=== PATIENT | male | born 1930 | race Caucasian/White ===

== ENCOUNTER 2017-01-15 14:21 | Emergency (ER) | payer MEDICAID ==
[~2017-01-15] VITALS: Ht 172.7 cm; Wt 85.0 kg
[~2017-01-15 14:21] MED LIST: ALBU18HF INHALATION; BECL8.7A INH; LEVO500T72 PO; LISI-313 PO; METF500T4 PO; SIMV10TA PO
[2017-01-15 14:41] VITALS: Ht 172.7 cm; Wt 85.0 kg
[2017-01-15] MEDS ORDERED: ONDANSETRON 4 MG INJ IV STA (17:40)
[2017-01-15] MEDS ORDERED: morphine 4 MG/ML VIAL IV STA (17:40)
[2017-01-15] MEDS ORDERED: SOD CHLORIDE 0.9% 500 ML IV STA (17:40)
[2017-01-15 17:58] LABS: BASOPHILS % 0.2 % (0.0-2.0); EOSINOPHILS # 0.7 10^3/ul (0.0-0.5); EOSINOPHILS % 7.6 % (0.0-7.0); HEMATOCRIT 32.6 % (42.0-52.0); HEMOGLOBIN 10.4 g/dl (14.0-18.0); LYMPHOCYTES # 1.3 10^3/ul (0.8-2.9); LYMPHOCYTES % 13.9 % (15.0-51.0); MEAN CORPUSCULAR HEMOGLOBIN 29.1 pg (29.0-33.0); MEAN CORPUSCULAR HGB CONC 31.9 g/dl (32.0-37.0); MEAN CORPUSCULAR VOLUME 91.1 fl (82.0-101.0); MEAN PLATELET VOLUME 8.6 fl (7.4-10.4); MONOCYTE # 0.7 10^3/ul (0.3-0.9); MONOCYTES % 7.8 % (0.0-11.0); NEUTROPHIL # 6.5 10^3/ul (1.6-7.5); NEUTROPHILS % 70.1 % (39.0-77.0); PLATELET COUNT 478 10^3/UL (140-415); RED BLOOD COUNT 3.58 10^6/ul (4.70-6.10); RED CELL DISTRIBUTION WIDTH 14.6 % (11.5-14.5); WHITE BLOOD COUNT 9.2 10^3/ul (4.8-10.8)
[2017-01-15] MEDS ORDERED: ASPI325T4 PO (18:10)
[2017-01-15] MEDS ORDERED: FER325 PO (18:11)
[2017-01-15] MEDS ORDERED: OMEP20CA16 PO (18:11)
[2017-01-15] MEDS ORDERED: DOCU100T PO (18:11)
[2017-01-15] MEDS ORDERED: ACET325T33 PO (18:12)
[2017-01-15] MEDS ORDERED: PSYL283P27 PO (18:14)
[2017-01-15 18:18] LABS: ALBUMIN 3.9 g/dl (3.3-4.9); ALBUMIN/GLOBULIN RATIO 0.79; BILIRUBIN,INDIRECT 0.2 mg/dl (0-1.1); BILIRUBIN,TOTAL 0.2 mg/dl (0.2-1.3); CALCIUM 8.9 mg/dl (8.4-10.2); CREATININE 0.92 mg/dl (0.61-1.24); TOTAL PROTEIN 8.8 g/dl (6.1-8.1)
[2017-01-15] MEDS ORDERED: IODIXANOL LOCM 100 ML BTL ONE (18:27)
[2017-01-15] MEDS ORDERED: SOD CHLORIDE 0.9% 100 ML ONE (18:27)
--- NOTE | 2017-01-15 19:18 | RADRPT ---
PROCEDURE: CT Abdomen and Pelvis with contrast. CLINICAL INDICATION: Abdominal pain. TECHNIQUE: CT scan of the abdomen and pelvis with and without contrast was performed on a multidet sunil high-resolution CT scanner. The patient was scanned following the uncomplicated intravenous a dministration of 100 cc of Omnipaque 300. Coronal and sagittal reformatted images were obtained fro m the axial source images. Images were reviewed on a high-resolution PACS workstation. The followin g dose reduction techniques were used: Automated exposure control, adjustment of the mA and/or kV ac cording to patient size and use of iterative reconstruction technique. The total exam CTDI equals 14 .7 mGy and the total exam DLP equals 790 mGy-cm. COMPARISON: None. FINDINGS: CT abdomen: Multiple bilateral thin-walled cysts in bilateral lung bases. The heart size is normal. No pericardial effusion identified. Small amount of fluid is seen in the distal esophagus, indicating reflux. The liver demonstrates normal size and density. No liver mass identified. The gallbladder is unremarkable. There is no intrahepatic or extrahepatic biliary dilatation. The spleen is normal in size. No focal splenic abnormality identified. No gross abnormality of the stomach is identified. The pancreas is unremarkable. The adrenal glands appear normal. There is a 2 mm calcific focus in the upper pole of left kidney which may represent vascular calcifi cation or nonobstructing renal calculus. There are multiple bilateral benign-appearing renal cysts, measuring up to 2.3 cm in the left kidney and 1.1 cm the right kidney. There is no evidence of renal mass, renal calculi or hydronephrosis. The aorta is of normal caliber. Aortic vascular calcifications are present. No adenopathy identified. The colon is moderately distended with stool. The bowel and mesentery are unremarkable. There is a 2.2 cm fat containing umbilical hernia. The appendix is visualized and appears normal. CT pelvis: The pelvic organs are normal. The pelvic sidewalls and inguinal regions are clear. The sigmoid colon and rectum are redundant and distended with stool. . No adenopathy, free fluid or inflammatory change identified. The osseous structures are remarkable for advanced degenerative spondylosis of the spine. No osteolytic or osteoblastic lesion is detected. IMPRESSION: 1. No mass, lymphadenopathy, or focal acute inflammatory process is identified. 2. Moderate atherosclerotic peripheral vascular disease. 3. Multiple benign-appearing bilateral renal cysts. 4. Numerous lung cysts in the bilateral lung bases. The differential diagnosis includes pulmonary L angerhans cell histiocytosis, lymphocytic interstitial pneumonitis, lymphangioleiomyomatosis as well as multiple rare diseases such as light change deposition disease and Sveb-Ozrw-Yycre syndrome. 5. Gastroesophageal reflux. 6. Redundant, stool-filled colon. In the appropriate clinical context this could indicate constipat ion. 7. 2.2 cm fat containing umbilical hernia. RPTAT: QQ .Ed Serna MD, Date Time Electronically viewed and signed by .Ed Serna MD, on 01/15/2017 19:18 .M/
--- NOTE | 2017-01-15 19:55 | ERD ---
ER Documentation Chief Complaint Date/Time DATE: 01/15/17 TIME: 19:51 Chief Complaint Complains of abdominal pain Hx of constipation x 2 months HPI This is a 86-year-old male who is complaining of constipation for 2 months. He says is getting worse over the past 2 weeks and he is complaining of diffuse abdominal pain today that is mild. He said he had one episode of some vomiting that is non-bilious and nonbloody. He says his pain is diffuse but worse when he tries to have a bowel movement. He says able to pass a few small balls of stool but there is no blood in it. No chest pain shortness of breath no back pain no fever ROS All systems reviewed and are negative except as per history of present illness. Medications Home Meds Active Scripts Albuterol Sulfate* (Ventolin HFA*) 18 Gm Hfa.aer.ad, 2 PUFF INHALATION Q4H, #1 INHALER Prov:LAILA AUGUSTIN 11/30/15 Metformin* (Glucophage*) 500 Mg Tab, 500 MG PO BID WITH MEALS, #60 TAB Prov:LAILA AUGUSTIN 11/30/15 Simvastatin* (Zocor*) 10 Mg Tablet, 10 MG PO QHS, #30 TAB Prov:LAILA AUGUSTIN 11/30/15 Reported Medications Psyllium Husk/Aspartame (Metamucil Sugar-Free Powder) 283 Gm Powder, 1 TSP PO DAILY 01/15/17 Acetaminophen* (Tylenol*) 325 Mg Tablet, 650 MG PO Q4H Y for PAIN, TAB 01/15/17 Docusate Sodium* (Dok*) 100 Mg Tablet, 100 MG PO DAILY, #30 CAP 01/15/17 Ferrous Sulfate* (Ferrous Sulfate*) 325 Mg Tabec, 325 MG PO DAILY, TAB 01/15/17 Omeprazole* (Omeprazole*) 20 Mg Capsule.dr, 20 MG PO DAILY, #30 CAP 01/15/17 Aspirin* (Aspirin*) 325 Mg Tablet, 325 MG PO BID, TAB 01/15/17 Discontinued Reported Medications Beclomethasone Dip* (Qvar 40*) 7.3 Gm Inha, 2 PUFF INH BID, #1 INHALER 08/27/15 Discontinued Scripts Lisinopril* (Lisinopril*) 5 Mg Tablet, 5 MG PO DAILY, #30 TAB Prov:REGIDOR,LAILA 11/30/15 Levofloxacin* (Levaquin*) 500 Mg Tablet, 500 MG PO DAILY for 10 Days, TAB Prov:LAILA AUGUSTIN 11/30/15 Allergies Allergies: Coded Allergies: No Known Allergy (Unverified , 01/15/17) PMhx/Soc History of Surgery: No Anesthesia Reaction: No Hx Neurological Disorder: No Hx Respiratory Disorders: Yes (Asthma) Hx Psychiatric Problems: No Hx Miscellaneous Medical Probl: Yes (sepsis,PNA, asthma,dyslipidemia,DM, htn) Hx Alcohol Use: No Hx Substance Use: No Hx Tobacco Use: No Smoking Status: Never smoker FmHx Family History: No coronary disease Physical Exam Vitals Vital Signs Date Time Temp Pulse Resp B/P Pulse Ox O2 Delivery O2 Flow Rate FiO2 01/15/17 17:52 69 20 146/70 99 Room Air 01/15/17 14:41 98.5 91 20 157/70 93 Physical Exam Const: [] Head: Atraumatic Eyes: Normal Conjunctiva ENT: Normal External Ears, Nose and Mouth. Neck: Full range of motion..~ No meningismus. Resp: Clear to auscultation bilaterally Cardio: Regular rate and rhythm, no murmurs Abd: Soft, non tender, non distended. Normal bowel sounds Skin: No petechiae or rashes Back: No midline or flank tenderness Ext: No cyanosis, or edema Neur: Awake and alert Psych: Normal Mood and Affect Result Diagram: 01/15/17 1740 01/15/17 1740 Results 24 hrs Laboratory Tests Test 01/15/17 17:40 White Blood Count 9.210^3/ul Red Blood Count 3.5810^6/ul Hemoglobin 10.4g/dl Hematocrit 32.6% Mean Corpuscular Volume 91.1fl Mean Corpuscular Hemoglobin 29.1pg Mean Corpuscular Hemoglobin Concent 31.9g/dl Red Cell Distribution Width 14.6% Platelet Count 82930^3/UL Mean Platelet Volume 8.6fl Neutrophils % 70.1% Lymphocytes % 13.9% Monocytes % 7.8% Eosinophils % 7.6% Basophils % 0.2% Nucleated Red Blood Cells % 0.0/100WBC Neutrophils # 6.510^3/ul Lymphocytes # 1.310^3/ul Monocytes # 0.710^3/ul Eosinophils # 0.710^3/ul Basophils # 0.010^3/ul Nucleated Red Blood Cells # 0.010^3/ul Sodium Level 137mmol/L Potassium Level 4.0mmol/L Chloride Level 99mmol/L Carbon Dioxide Level 28mmol/L Anion Gap 14 Blood Urea Nitrogen 10mg/dl Creatinine 0.92mg/dl Glucose Level 124mg/dl Calcium Level 8.9mg/dl Total Bilirubin 0.2mg/dl Direct Bilirubin 0.00mg/dl Indirect Bilirubin 0.2mg/dl Aspartate Amino Transf (AST/SGOT) 28IU/L Alanine Aminotransferase (ALT/SGPT) 37IU/L Alkaline Phosphatase 94IU/L Total Protein 8.8g/dl Albumin 3.9g/dl Globulin 4.90g/dl Albumin/Globulin Ratio 0.79 Lipase 23U/L Current Medications Medications (Trade) Dose Ordered Sig/Efren Route PRN Reason Start Time Stop Time Status Last Admin Dose Admin Sodium Chloride (NS) 500 ml @ 500 mls/hr Q1H STAT IV 01/15/17 17:40 01/15/17 18:39 DC 01/15/17 18:06 Morphine Sulfate (morphine) 4 mg ONCE STAT IV 01/15/17 17:40 01/15/17 17:41 DC 01/15/17 18:06 Ondansetron HCl (Zofran Inj) 4 mg ONCE STAT IV 01/15/17 17:40 01/15/17 17:41 DC 01/15/17 18:05 IV Flush 10 ml 10 ml STK-MED ONCE .ROUTE 01/15/17 18:27 01/15/17 18:28 DC 01/15/17 18:40 Sodium Chloride (NS) 100 ml @ ud STK-MED ONCE .ROUTE 01/15/17 18:27 01/15/17 18:28 DC 01/15/17 18:40 Iodixanol (Visipaque Locm) 100 ml STK-MED ONCE .ROUTE 01/15/17 18:27 01/15/17 18:28 DC 01/15/17 18:41 Procedures/MDM PROCEDURE: CT Abdomen and Pelvis with contrast. CLINICAL INDICATION: Abdominal pain. TECHNIQUE: CT scan of the abdomen and pelvis with and without contrast was performed on a multidetector high-resolution CT scanner. The patient was scanned following the uncomplicated intravenous administration of 100 cc of Omnipaque 300. Coronal and sagittal reformatted images were obtained from the axial source images. Images were reviewed on a high-resolution PACS workstation. The following dose reduction techniques were used: Automated exposure control, adjustment of the mA and/or kV according to patient size and use of iterative reconstruction technique. The total exam CTDI equals 14.7 mGy and the total exam DLP equals 790 mGy-cm. COMPARISON: None. FINDINGS: CT abdomen: Multiple bilateral thin-walled cysts in bilateral lung bases. The heart size is normal. No pericardial effusion identified. Small amount of fluid is seen in the distal esophagus, indicating reflux. The liver demonstrates normal size and density. No liver mass identified. The gallbladder is unremarkable. There is no intrahepatic or extrahepatic biliary dilatation. The spleen is normal in size. No focal splenic abnormality identified. No gross abnormality of the stomach is identified. The pancreas is unremarkable. The adrenal glands appear normal. There is a 2 mm calcific focus in the upper pole of left kidney which may represent vascular calcification or nonobstructing renal calculus. There are multiple bilateral benign-appearing renal cysts, measuring up to 2.3 cm in the left kidney and 1.1 cm the right kidney. There is no evidence of renal mass, renal calculi or hydronephrosis. The aorta is of normal caliber. Aortic vascular calcifications are present. No adenopathy identified. The colon is moderately distended with stool. The bowel and mesentery are unremarkable. There is a 2.2 cm fat containing umbilical hernia. The appendix is visualized and appears normal. CT pelvis: The pelvic organs are normal. The pelvic sidewalls and inguinal regions are clear. The sigmoid colon and rectum are redundant and distended with stool. . No adenopathy, free fluid or inflammatory change identified. The osseous structures are remarkable for advanced degenerative spondylosis of the spine. No osteolytic or osteoblastic lesion is detected. IMPRESSION: 1. No mass, lymphadenopathy, or focal acute inflammatory process is identified. 2. Moderate atherosclerotic peripheral vascular disease. 3. Multiple benign-appearing bilateral renal cysts. 4. Numerous lung cysts in the bilateral lung bases. The differential diagnosis includes pulmonary Langerhans cell histiocytosis, lymphocytic interstitial pneumonitis, lymphangioleiomyomatosis as well as multiple rare diseases such as light change deposition disease and Hbfh-Pwro-Igyia syndrome. 5. Gastroesophageal reflux. 6. Redundant, stool-filled colon. In the appropriate clinical context this could indicate constipation. 7. 2.2 cm fat containing umbilical hernia. RPTAT: QQ .Ed Serna MD, Date Time Electronically viewed and signed by .Ed Serna MD, on 01/15/2017 19: 18 .M/ CC: SENA VELAZQUEZ DO Patient was given a Fleet enema here. We will discharge home with a prescription for HalfLytely to evacuate the rest of his stool in his colon. Departure Diagnosis: Primary Impression: Constipation Constipation type: unspecified constipation type Qualified Code: K59.00 - Constipation, unspecified constipation type Additional Impression: Abdominal pain Abdominal location: unspecified location Qualified Code: R10.9 - Abdominal pain, unspecified abdominal location Condition: Stable Patient Instructions: Abdominal Pain, Treating Constipation, Constipation ( Adult) SENA VELAZQUEZ DO Jan 15, 2017 19:55
[2017-01-15] MEDS ORDERED: NA PHOSPHATE/BIPHOS 133 ML ENEMA PR ONE (20:00)
[2017-01-15 20:07] LABS: ADD UMIC NO; UR ASCORBIC ACID NEGATIVE (NEGATIVE); UR BILIRUBIN (Dip) NEGATIVE (NEGATIVE); UR BLOOD (Dip) NEGATIVE (NEGATIVE); UR CLARITY CLEAR (CLEAR); UR COLOR STRAW (YELLOW); UR GLUCOSE (Dip) NEGATIVE (NEGATIVE); UR KETONES (Dip) NEGATIVE (NEGATIVE); UR LEUKOCYTE ESTERASE (Dip) NEGATIVE Leu/ul (NEGATIVE); UR NITRITE (Dip) NEGATIVE (NEGATIVE); UR SPECIFIC GRAVITY (Dip) 1.026 (1.003-1.030); UR TOTAL PROTEIN (Dip) NEGATIVE (NEGATIVE); UR UROBILINOGEN (Dip) NEGATIVE (NEGATIVE)
[2017-01-15 21:30] VITALS: BP 146/60; PULSE 97; RESP 19
== END 2017-01-15 21:47 | disposition home or self-care (01) ==
LOC: E/R 14:21
DX: K59.00 Constipation, unspecified (principal); E11.9 Type 2 diabetes mellitus without complications; I10 Essential (primary) hypertension; J45.909 Unspecified asthma, uncomplicated; Z79.82 Long term (current) use of aspirin; Z79.84 Long term (current) use of oral hypoglycemic drugs
CPT/HCPCS: 36415; 74177; 80053; 81003; 83690; 85025; 96374; 96375; J2270; J2405; J7040; Q9967; Z7502; Z7610

== ENCOUNTER 2017-06-05 19:25 | Inpatient (IN) | END 2017-06-09 16:10 | disposition home health service (06) | DRG 871 ==

== ENCOUNTER 2018-05-24 06:53 | Emergency (ER) | payer MEDICAID, OTHER ==
[~2018-05-24] VITALS: Ht 152.4 cm; Wt 78.3 kg
[~2018-05-24 06:53] MED LIST changes: -ALBU18HF INHALATION; -BECL8.7A INH; +BEN25 PO; +BENZ1LOZ4 MT; +GUAI-637 PO; +LEVA15HF6 INH; -LEVO500T72 PO; +LEVO750T25 PO; -LISI-313 PO; +LORA10TA3 PO; +METF-849 PO; -METF500T4 PO; +MOME13HF2 INHALATION; +TIOT18CA INHALATION
[2018-05-24 06:55] VITALS: Ht 152.4 cm; Wt 78.3 kg
[2018-05-24] MEDS ORDERED: IPRATROPIUM (NEB) 0.5 MG/2.5 ML AMP NEB STA (08:03)
[2018-05-24] MEDS ORDERED: ALBUTEROL 0.083% (NEB) 2.5 MG/3 ML AMP NEB STA (08:03)
--- NOTE | 2018-05-24 08:03 | ERD ---
ER Documentation Chief Complaint Chief Complaint sent by pcp foot lesion - non diabetic HPI This is an 88-year-old male with history of wxu-xlozaik-ksrmdtgst diabetes mellitus. The patient presents to the emergency department as requested after being seen yesterday of edmund Noel. The patient indicates that for the past 1 month he has been not taking any medications due to insurance problems. He recently had his insurance reinstated and was evaluated yesterday by his PCP. The reason he was instructed to come to the emergency department is he developed an ulcer 1 month ago on his right foot. However he states he denies any pain over the right foot. He denies any purulent drainage from the ulcer site and states that there has been a scab which has been persistent for 1 month. He said no fevers or shaking or chills. He denies any swelling of his lower extremities no numbness or tingling of his lower extremities. He states that the ulcer has not increased in size. He has no shortness of breath at rest or exertion. He denies any chest pain or pressure. He does have a history of COPD and does complain of mild dyspnea over the past several days. He however denies a productive or nonproductive cough. ROS All systems reviewed and are negative except as per history of present illness. Medications Home Meds Active Scripts Levalbuterol* (Xopenex* HFA) 15 Gm Inha, 2 PUFFS INH Q4H PRN for WHEEZING AND SOB, #1 INHALER 2 Refills Prov:LALITA FARMER 06/09/17 Metformin* (Glucophage*) 500 Mg Tab, 500 MG PO BID WITH MEALS, #60 TAB Prov:LAILA AUGUSTIN 11/30/15 Reported Medications Diphenhydramine Hcl* (Benadryl*) 25 Mg Cap, 25 MG PO QHS PRN for ITCHING, CAP 06/05/17 Tiotropium Dixon* (Spiriva*) 18 Mcg Cap.w.dev, 1 CAP INHALATION DAILY, #30 CAP 06/05/17 Loratadine* (Loratadine*) 10 Mg Tablet, 10 MG PO DAILY, #30 TAB 06/05/17 Simvastatin* (Zocor*) 10 Mg Tablet, 10 MG PO QHS, #30 TAB 06/05/17 Mometasone-Formoterol (Dulera) 100-5 Mcg - 13 Gm Hfa.aer.ad, 2 PUFFS INHALATION BID, #1 INHALER 06/05/17 Discontinued Scripts Guaifenesin (Guaifenesin) 100 Mg/5 Ml Liquid, 200 MG PO Q4H PRN for COUGH, #1 BOTTLE Prov:LALITA FARMER S. 06/09/17 Benzocaine/Menthol (SORE THROAT LOZENGE) 1 Each Lozenge, 1 LOZENGE MT Q1H PRN for COUGH, #1 BOTTLE 1 Refill Prov:LALITA FARMER S. 06/09/17 Levofloxacin* (Levaquin*) 750 Mg Tablet, 750 MG PO DAILY@06 for 5 Days, #5 TAB Prov:LALITA FARMER S. 06/09/17 Allergies Allergies: Coded Allergies: No Known Allergy (Unverified , 05/24/18) PMhx/Soc History of Surgery: Yes (ALEXA KNEE SURG) Anesthesia Reaction: No Hx Neurological Disorder: No Hx Respiratory Disorders: Yes (ASTHMA , COPD ) Hx Cardiac Disorders: Yes (HTN) Hx Psychiatric Problems: No Hx Miscellaneous Medical Probl: Yes (DM ) Hx Alcohol Use: No Hx Substance Use: No Hx Tobacco Use: Yes (QUIT 30 YRS AGO ) Smoking Status: Former smoker Physical Exam Vitals Vital Signs Date Temp Pulse Resp B/P (MAP) Pulse Ox O2 O2 Flow FiO2 Time Delivery Rate 05/24/18 69 18 100 21 08:25 05/24/18 98.6 82 19 173/74 95 06:55 (107) Physical Exam Constitutional:Well-developed. Well-nourished. HEENT:Normocephalic. Atraumatic.Pupils were equal round reactive to light. Moist mucous membranes.No tonsillar exudates. Neck: No nuchal rigidity. No lymphadenopathy. No posterior cervical spine tenderness or step-offs. Respiratory: Not using accessory muscles of respiration.Lungs were clear to auscultation bilaterally. No rhonchi. No rales. Wheezing on end auscultation bilaterally. Cardiovascular: Regular rate regular rhythm.No murmurs. No rubs were appreciated.S1, S2 normal. Distal pulses are palpable 2+ bilaterally. GI: Abdomen was soft. Nontender. Non Distended. No pulsatile abdominal masses or bruits. No rebound. No guarding. Bowel sounds were present and normal. Muscle skeletal: Full range of motion of both the upper and lower extremities bilaterally.Normal muscle tone.No assymetrical calf tenderness or swelling. Skin: No petechia, no purpura. No lesions on the palms or the soles of the feet. No maculopapular rash. 3 cm diameter well-circumscribed stage I ulcer over the dorsal aspect of the distal second third and fourth metatarsal with no surrounding tenderness erythremia no fluctuance no induration, and very mild erythema and warmth surrounding the ulcer site. NEURO: Patient was alert, awake, orientated x3.No facial droop. Gait observed and normal with no ataxia.Speech had regular rate and rhythm. No focal neurological deficits. Result Diagram: 05/24/1835 05/24/1835 Results 24 hrs Laboratory Tests Test 05/24/18 07:35 White Blood Count 8.1 10^3/ul Red Blood Count 4.46 10^6/ul Hemoglobin 14.0 g/dl Hematocrit 42.1 % Mean Corpuscular Volume 94.4 fl Mean Corpuscular Hemoglobin 31.4 pg Mean Corpuscular Hemoglobin Concent 33.3 g/dl Red Cell Distribution Width 13.2 % Platelet Count 302 10^3/UL Mean Platelet Volume 10.3 fl Immature Granulocytes % 0.400 % Neutrophils % 50.3 % Lymphocytes % 25.8 % Monocytes % 10.1 % Eosinophils % 12.8 % Basophils % 0.6 % Nucleated Red Blood Cells % 0.0 /100WBC Immature Granulocytes # 0.030 10^3/ul Neutrophils # 4.1 10^3/ul Lymphocytes # 2.1 10^3/ul Monocytes # 0.8 10^3/ul Eosinophils # 1.0 10^3/ul Basophils # 0.1 10^3/ul Nucleated Red Blood Cells # 0.0 10^3/ul Prothrombin Time 13.0 Sec Prothrombin Time Ratio 1.0 INR International Normalized Ratio 0.97 Activated Partial Thromboplast Time 31.8 Sec Sodium Level 140 mmol/L Potassium Level 4.0 mmol/L Chloride Level 101 mmol/L Carbon Dioxide Level 29 mmol/L Anion Gap 10 Blood Urea Nitrogen 16 mg/dl Creatinine 1.13 mg/dl Est Glomerular Filtrat Rate mL/min mL/min Glucose Level 112 mg/dl Hemoglobin A1c 6.2 % Calcium Level 9.4 mg/dl Total Bilirubin 0.2 mg/dl Direct Bilirubin 0.00 mg/dl Indirect Bilirubin 0.2 mg/dl Aspartate Amino Transf (AST/SGOT) 35 IU/L Alanine Aminotransferase (ALT/SGPT) 21 IU/L Alkaline Phosphatase 64 IU/L Troponin I 0.016 ng/ml B-Type Natriuretic Peptide 165 PG/ML Total Protein 8.2 g/dl Albumin 4.1 g/dl Globulin 4.10 g/dl Albumin/Globulin Ratio 1.00 Amylase Level 94 U/L Lipase 29 U/L Current Medications Medications Dose Sig/Efren Start Time Status Last (Trade) Ordered Route PRN Stop Time Admin Dose Reason Admin Albuterol 5 mg ONCE STAT 05/24/18 DC 05/24/18 (Proventil NEB 08:03 08:23 0.083% (Neb)) 05/24/18 08:06 Ipratropium 0.5 mg ONCE STAT 05/24/18 DC 05/24/18 Dixon NEB 08:03 08:23 (Atrovent 05/24/18 08:06 0.02% (Neb)) Procedures/MDM The patient presented to the emergency department with a spreading erythematous superficial infection of the skin and subcutaneous tissues. My differential diagnosis included but was not limited to necrotizing fasciitis, lymphangitis, thrombophlebitis, deep vein thrombosis, allergic reaction, neoplasm, gout or abscess. Predisposing factors of the progressive spread of erythema, warmth, pain and tenderness was considered such as lymphedema, tinea pedis, open wounds, prior trauma or surgery, pre-existing skin lesion (furuncle), retained foreign body, injection drug use or vascular or immune compromise. The patient was placed on antibiotics to cover Staphylococcus aureus, including resistant strains such as community-acquired methicillin-resistant S. aureus. The patient did appear to have a stage I diabetic foot ulcer. The patient stated this has been present for over a month and I obtained radiographic imagi ng of the right foot which showed no secondary changes to suggest ostium mellitus. The patient also had wheezing on end" but has a known history of COPD. Therefore felt it was necessary to obtain a chest radiograph which showed no infiltrates no pneumothorax or pleural effusions was read by the radiologist as the followin. Blunting of the costophrenic angles may reflect mild pleural thickening or small bilateral pleural effusions. 2. Mild cardiomegaly and aortic atherosclerosis. The patient received a nebulizer treatment which significantly improved her symptoms. Steroids were not given as the patient has a history of diabetes. 12 Lead EKG tracing ordered and reviewed by myself showed: Normal sinus rhythm of 73 bpm and no arrhythmia. NC interval prolonged at 240 minutes with first-degree AV block QRS duration normal. No ST segment elevation No ST segment depression. No changes consistent with acute ischemia. Departure Diagnosis: Primary Impression: Diabetic foot ulcer Diabetic foot ulcer location: midfoot Diabetes mellitus type: type 1 Laterality: right Non-pressure ulcer stage: limited to breakdown of skin Qualified Codes: E10.621 - Type 1 diabetes mellitus with foot ulcer; L97.411 - Non-pressure chronic ulcer of right heel and midfoot limited to breakdown of skin Additional Impression: Cellulitis in diabetic foot Condition: GAEL Prabhakar MD May 24, 2018 08:03
[2018-05-24] MEDS ORDERED: CEPH-443 PO (09:13)
[2018-05-24 09:40] VITALS: BP 142/76; PULSE 78; RESP 18
== END 2018-05-24 09:40 | disposition home or self-care (01) ==
LOC: E/R 06:53
DX: E10.621 Type 1 diabetes mellitus with foot ulcer (principal); L97.411 Non-pressure chronic ulcer of right heel and midfoot limited to breakdown of skin; L03.115 Cellulitis of right lower limb; J45.909 Unspecified asthma, uncomplicated; J44.9 Chronic obstructive pulmonary disease, unspecified; I10 Essential (primary) hypertension; R07.9 Chest pain, unspecified; Z87.891 Personal history of nicotine dependence; Z79.84 Long term (current) use of oral hypoglycemic drugs
CPT/HCPCS: 71045; 73630; 80053; 82150; 83036; 83690; 83880; 84484; 85025; 85610; 85730; 87040; 93005; 94664; Z7502; Z7610